=== PATIENT | male | born 1965 | race Caucasian/White ===

== ENCOUNTER 2017-02-15 13:36 | Emergency (ER) | payer BC ==
[2017-02-15 14:24] LABS: BASO % 0.2 % (0-6); EOS % 1.9 % (0-6); GRAN % 79.3 % (47-80); HEMOGLOBIN 14.9 gm/dl (14.0-18.0); LYMPH % 10.1 % (16-45); MEAN CORPUSCULAR HEMOGLOBIN 29.4 pg (27-33); MEAN CORPUSCULAR HGB CONC 33.9 g/dl (32-36); MONO % 8.5 % (0-9); PLATELET COUNT 190 K/uL (130-400); RED BLOOD COUNT 5.06 M/uL (4.40-5.70); RED CELL DISTRIBUTION WIDTH 13.6 % (11.5-14.5); WHITE BLOOD COUNT W/O DIFF 8.9 K/uL (4.2-12.2)
[2017-02-15 14:35] LABS: ANION GAP 9.6 (7-16); BLOOD UREA NITROGEN 14 mg/dL (9-20); CARBON DIOXIDE 24.4 mmol/L (22-30); CREATININE 0.6 mg/dL (0.66-1.25); EST GLOMERULAR FILTRATION RATE > 60 ml/min; GLUCOSE,RANDOM 173 mg/dL (70-110)
[2017-02-15] MEDS ORDERED: CLINDAMYCIN 600MG/50ML PREMIX 600 MG in DEXTROSE 1 BAG IV ONE (15:08)
[2017-02-15 15:19] LABS: URINE APPEARANCE CLEAR; URINE BILIRUBIN NEGATIVE (NEGATIVE); URINE BLOOD NEGATIVE (NEGATIVE); URINE COLOR YELLOW; URINE KETONE TRACE (NEGATIVE); URINE LEUKOCYTE ESTERASE NEGATIVE (NEGATIVE); URINE NITRITE NEGATIVE (NEGATIVE); URINE PROTEIN NEGATIVE (NEGATIVE); URINE UROBILINOGEN 0.2 E.U./dL (0.20 - 1.00)
[2017-02-15 15:20] LABS: URINE GLUCOSE (UA) >=1000 mg/dL (NEGATIVE)
--- NOTE | 2017-02-15 15:37 | Emergency Department Record ---
History of Present Illness - General Chief complaint: Bite Insect/other Stated complaint: INSECT BITE ON RT LEG Time Seen by Provider: 02/15/17 14:00 Source: Patient Mode of Arrival: Ambulatory Limitations: No limitations - History of Present Illness Initial comments: pt has 2 sores on thigh. he is unsure what caused them but thought they might be spider bites. they have grown progressively worse and now are starting to drain. MD complaint: Abscess/boil Onset/Timin -: Days(s) Patient Tetanus UTD (within 5 yrs): Yes Location: Generalized Severity: Moderate Severity scale (1-10): 8 Quality: Aching Consistency: Constant, Intermittent Improves with: Rest Worsens with: Palpation, Movement - Related Data Home Medications Medication Instructions Recorded Confirmed Last Taken Insulin NPL/Insulin Lispro 25 units SQ BID 07/03/15 02/15/17 1 Day Ago [Humalog Mix 75/25 Vial] Metformin HCl 1,000 mg PO BID 07/03/15 02/15/17 1 Day Ago Amlodipine Besylate [Norvasc] 10 mg PO DAILY 02/15/17 02/15/17 1 Day Ago Betamethasone Valerate 15 gm TP DAILY 02/15/17 02/15/17 1 Day Ago Mupirocin [Bactroban] 1 apply TP TID 02/15/17 02/15/17 1 Day Ago Previous Rx's Medication Instructions Recorded Clindamycin HCl [Cleocin HCl] 300 mg PO QID #40 capsule 02/15/17 Hydrocodone/Acetaminophen [[place] 1 tab PO Q6H PRN #14 tab 02/15/17 7.5mg/325mg] Allergies Allergy/AdvReac Type Severity Reaction Status Date / Time ciprofloxacin [From Cipro] Allergy HIVES Verified 02/15/17 13:49 ciprofloxacin HCl Allergy HIVES Verified 02/15/17 13:49 [From Cipro] Travel Screening - Travel/Exposure Within Last 30 Days Have you traveled within the last 30 days?: No - Travel/Exposure Within Last Year Have you traveled outside the [place] in the last year?: No - Additonal Travel Details Have you been exposed to anyone with a communicable illness?: No - Travel Symptoms Symptom Screening: None Review of Systems Reviewed: No additional complaints except as noted below Constitutional: Reports: As per HPI. Denies: Chills, Fever, Malaise, Night sweats, Weakness, Weight change Eyes: Reports: As per HPI. Denies: Eye discharge, Eye pain, Photophobia, Vision change ENT: Reports: As per HPI. Denies: Congestion, Dental pain, Ear pain, Epistaxis , Hearing loss, Throat pain Respiratory: Reports: As per HPI. Denies: Cough, Dyspnea, Hemoptysis, Stridor, Wheezes Cardiovascular: Reports: As per HPI. Denies: Arrhythmia, Chest pain, Dyspnea on exertion, Edema, Murmurs, Orthopnea, Palpitations, Paroxysmal nocturnal dyspnea, Rheumatic Fever, Syncope Endocrine: Reports: As per HPI. Denies: Fatigue, Heat or cold intolerance, Polydipsia, Polyuria Gastrointestinal: Reports: As per HPI. Denies: Abdominal pain, Constipation, Diarrhea, Hematemesis, Hematochezia, Melena, Nausea, Vomiting Genitourinary: Reports: As per HPI. Denies: Dysuria, Frequency, Hematuria, Incontinence, Retention, Testicular pain, Testicular mass, Urgency Musculoskeletal: Reports: As per HPI. Denies: Arthralgia, Back pain, Gout, Joint swelling, Myalgia, Neck pain Skin: Reports: As per HPI. Denies: Bruising, Change in color, Change in hair/ nails, Lesions, Pruritus, Rash Neurological: Reports: As per HPI. Denies: Abnormal gait, Confusion, Headache, Numbness, Paresthesias, Seizure, Tingling, Tremors, Vertigo, Weakness Psychiatric: Reports: As per HPI. Denies: Anxiety, Auditory hallucinations, Depression, Homicidal thoughts, Suicidal thoughts, Visual hallucinations Hematological/Lymphatic: Reports: As per HPI. Denies: Anemia, Blood Clots, Easy bleeding, Easy bruising, Swollen glands Past Medical History - SOCIAL HISTORY Smoking Status: Never smoker Alcohol Use: Occassional Drug Use: None - RESPIRATORY Hx Respiratory Disorders: No - CARDIOVASCULAR Hx Cardio Disorders: No - NEURO Hx Neuro Disorders: No - GI Hx GI Disorders: No Hx Abdominal Pain: Yes - Hx Genitourinary Disorders: No - ENDOCRINE Hx Endocrine Disorders: Yes Hx Diabetes: Yes - MUSCULOSKELETAL Hx Musculoskeletal Disorders: No - PSYCH Hx Psych Problems: No - HEMATOLOGY/ONCOLOGY Hx Hematology/Oncology Disorders: No Family Medical History Any Significant Family History?: Yes Hx Cancer: Grandparents Hx Diabetes: Grandparents Physical Exam - General General Appearance: Alert, Oriented x3, Cooperative, Mild distress - Head Head exam: Normal inspection - Eye Eye exam: Normal appearance, PERRL Pupils: Normal accommodation - ENT ENT exam: Normal exam, Mucous membranes moist, Normal external ear exam, Normal orophraynx Ear exam: Normal external inspection. negative: External canal tenderness Nasal Exam: Normal inspection. negative: Discharge, Sinus tenderness Mouth exam: Normal external inspection, Tongue normal Teeth exam: Normal inspection. negative: Dental caries Throat exam: Normal inspection. negative: Tonsillar erythema, Tonsillar exudate - Neck Neck exam: Normal inspection, Full ROM. negative: Tenderness - Respiratory Respiratory exam: Normal lung sounds bilaterally. negative: Respiratory distress - Cardiovascular Cardiovascular Exam: Regular rate, Normal rhythm, Normal heart sounds - GI/Abdominal GI/Abdominal exam: Soft, Normal bowel sounds. negative: Tenderness - Rectal Rectal exam: Deferred - exam: Deferred - Extremities Extremities exam: Normal inspection, Full ROM, Normal capillary refill. negative: Tenderness Image of Full Body: 1 - cellulitis w 2 areas of black centers, plate size. minimally fluctuent, tender - Back Back exam: Reports: Normal inspection, Full ROM. Denies: Muscle spasm, Rash noted, Tenderness - Neurological Neurological exam: Alert, CN II-XII intact, Normal gait, Oriented X3 - Psychiatric Psychiatric exam: Normal affect, Normal mood - Skin Skin exam: Dry, Intact, Normal color, Warm Course Vital Signs 02/15/17 13:42 Temperature 98.2 F Pulse Rate 85 Respiratory 18 Rate Blood Pressure 116/72 Pulse Ox 97 - Reevaluation(s) Reevaluation #1: 02/15/17 16:17 area was sterilely prepped and draped, anesthetized w lido, both spots were incised w 11 blade. minimal drainage., culture obtained Procedures - Incision and Drainage Site: r thigh Blade Size: 11 Medical Decision Making - Lab Data Result diagrams: 02/15/17 14:12 02/15/17 14:12 Lab Results 02/15/17 02/15/17 02/15/17 Range/Units 14:03 14:12 14:12 WBC 8.9 (4.2-12.2) K/uL RBC 5.06 (4.40-5.70) M/uL Hgb 14.9 (14.0-18.0) gm/dl Hct 44.0 (42.0-52.0) % MCV 87.0 (81-97) fl MCH 29.4 (27-33) pg MCHC 33.9 (32-36) g/dl RDW 13.6 (11.5-14.5) % Plt Count 190 (130-400) K/uL MPV 11.0 H (7.4-10.4) fl Gran % 79.3 (47-80) % Lymphocytes % 10.1 L (16-45) % Monocytes % 8.5 (0-9) % Eosinophils % 1.9 (0-6) % Basophils % 0.2 (0-6) % Sodium 138 (136-145) mmol/L Potassium 4.2 (3.5-5.1) mmol/L Chloride 104 (98-107) mmol/L Carbon Dioxide 24.4 (22-30) mmol/L Anion Gap 9.6 (7-16) BUN 14 (9-20) mg/dL Creatinine 0.6 L (0.66-1.25) mg/dL Estimated GFR > 60 ml/min Random Glucose 173 H (70-110) mg/dL Calcium 8.6 (8.5-10.1) mg/dL Urine Color Yellow Urine Appearance Clear Urine pH 5.0 (5.0-8.0) Ur Specific [place] 1.020 (1.002-1.030) Urine Protein Negative (NEGATIVE) Urine Glucose (UA) >=1000 mg/dl H (NEGATIVE) Urine Ketones Trace H (NEGATIVE) Urine Blood Negative (NEGATIVE) Urine Nitrite Negative (NEGATIVE) Urine Bilirubin Negative (NEGATIVE) Urine Urobilinogen 0.2 (0.20 - 1.00) E.U./dL Ur Leukocyte Esterase Negative (NEGATIVE) Disposition Disposition: Discharge Clinical Impression: Abscess or cellulitis of thigh Disposition: Home, Self-Care Condition: (1) Good Instructions: Cellulitis (ED), Abscess (ED) Additional Instructions: return for recheck in am without fail. return sooner if worse. elevate Prescriptions: Clindamycin HCl [Cleocin HCl] 300 mg PO QID #40 capsule Hydrocodone/Acetaminophen [[place] 7.5mg/325mg] 1 tab PO Q6H PRN #14 tab PRN Reason: Pain - General Forms: Patient Portal Access
[2017-02-15] MEDS ORDERED: HYDROCODONE/APAP 7.5/325MG TABLET PO ONE (16:21)
== END 2017-02-15 16:35 | disposition home or self-care (01) ==
LOC: ER 13:36
DX: L02.415 Cutaneous abscess of right lower limb (principal)
CPT/HCPCS: 10060; 80048; 81003; 85025; 96374; 99284

== ENCOUNTER 2017-02-16 09:33 | Emergency (ER) | payer BC ==
[2017-02-16] MEDS ORDERED: CLINDAMYCIN 600MG/50ML PREMIX 600 MG in DEXTROSE 1 BAG IV ONE (09:44)
--- NOTE | 2017-02-16 09:51 | Emergency Department Record ---
History of Present Illness - General Chief Complaint: Wound, check Stated Complaint: WOUND RECHECK Time Seen by Provider: 02/16/17 09:37 Source: Patient Mode of arrival: Ambulatory Limitations: No limitations - History of Present Illness Initial Comments: 51 yo male returns to ED for evaluation of previously drained abscess lesions x 2 to the right medial thigh. Patient reports that the surrounding erythema has improved from yesterday, reports low-grade fever last night. Patient reports the lesions have been present for the past 5 days, started as small pimples to the thigh that grew over several days. Patient does report a history of IDDM. MD Complaint: Wound re-check Onset/Timin -: Days(s) Initial Visit For: Abscess, Cellulitis Returns Today for: Wound recheck Symptoms Since Prior Visit: Fever Associated Symptoms: None Treatments Prior to Arrival: Dressings, Given antibiotics on initial visit, Other - Related Data Home Medications Medication Instructions Recorded Confirmed Last Taken Insulin NPL/Insulin Lispro 25 units SQ BID 07/03/15 02/16/17 02/16/17 [Humalog Mix 75/25 Vial] Metformin HCl 1,000 mg PO BID 07/03/15 02/16/17 02/16/17 Amlodipine Besylate [Norvasc] 10 mg PO DAILY 02/15/17 02/16/17 02/16/17 Betamethasone Valerate 15 gm TP DAILY 02/15/17 02/16/17 02/16/17 Mupirocin [Bactroban] 1 apply TP TID 02/15/17 02/16/17 02/16/17 Previous Rx's Medication Instructions Recorded Clindamycin HCl [Cleocin HCl] 300 mg PO QID #40 capsule 02/15/17 Hydrocodone/Acetaminophen [[place] 1 tab PO Q6H PRN #14 tab 02/15/17 7.5mg/325mg] Allergies Allergy/AdvReac Type Severity Reaction Status Date / Time ciprofloxacin [From Cipro] Allergy HIVES Verified 02/15/17 13:49 ciprofloxacin HCl Allergy HIVES Verified 02/15/17 13:49 [From Cipro] Review of Systems Constitutional: Reports: Fever. Denies: Chills, Malaise, Night sweats Eyes: Denies: Eye discharge, Eye pain ENT: Denies: Congestion, Dental pain Respiratory: Denies: Cough, Stridor, Wheezes Cardiovascular: Denies: Chest pain, Dyspnea on exertion Endocrine: Denies: Fatigue, Heat or cold intolerance Gastrointestinal: Denies: Abdominal pain, Nausea, Vomiting Genitourinary: Denies: Incontinence, Retention Musculoskeletal: Denies: Arthralgia, Back pain, Gout, Joint swelling Skin: Reports: Lesions. Denies: Bruising, Change in color, Change in hair/nails Neurological: Denies: Abnormal gait, Confusion, Headache, Tingling Psychiatric: Denies: Anxiety Hematological/Lymphatic: Denies: Anemia, Blood Clots Past Medical History - SOCIAL HISTORY Smoking Status: Never smoker Drug Use: None - RESPIRATORY Hx Respiratory Disorders: No - CARDIOVASCULAR Hx Cardio Disorders: No - NEURO Hx Neuro Disorders: No - GI Hx GI Disorders: No Hx Abdominal Pain: Yes - Hx Genitourinary Disorders: No - ENDOCRINE Hx Endocrine Disorders: Yes Hx Diabetes: Yes - MUSCULOSKELETAL Hx Musculoskeletal Disorders: No - PSYCH Hx Psych Problems: No - HEMATOLOGY/ONCOLOGY Hx Hematology/Oncology Disorders: No Family Medical History Hx Cancer: Grandparents Hx Diabetes: Grandparents Physical Exam - General General Appearance: Alert, Oriented x3, Cooperative, No acute distress Limitations: No limitations - Head Head exam: Atraumatic, Normocephalic, Normal inspection Head exam detail: negative: Abrasion, Contusion, Caldwell's sign, General tenderness, Hematoma, Laceration - Eye Eye exam: Normal appearance. negative: Conjunctival injection, Periorbital swelling, Periorbital tenderness, Scleral icterus - ENT Ear exam: negative: Auricular hematoma, Auricular trauma Nasal Exam: negative: Active bleeding, Discharge, Dried blood Mouth exam: negative: Drooling, Laceration, Muffled voice, Tongue elevation - Neck Neck exam: Normal inspection. negative: Meningismus, Tenderness - Respiratory Respiratory exam: Normal lung sounds bilaterally. negative: Respiratory distress, Rhonchi, Stridor, Wheezes - Cardiovascular Cardiovascular Exam: Regular rate, Normal rhythm, Normal heart sounds - GI/Abdominal GI/Abdominal exam: Soft. negative: Rebound, Rigid, Tenderness - Rectal Rectal exam: Deferred - exam: Deferred - Extremities Extremities exam: Tenderness, Other (Erythema surrounding two perviously incised lesions present along the medial right thigh, erythema has improved from previously marked area, induration is still present surrounding the lesions.). negative: Pedal edema - Back Back exam: Denies: CVA tenderness (R), CVA tenderness (L) - Neurological Neurological exam: Alert, Normal gait, Oriented X3 - Psychiatric Psychiatric exam: Normal affect, Normal mood - Skin Skin exam: Erythema, Warm Type of lesion: Abscess Distribution of rash: RLE Description of rash: Erythematous, Swelling, Tenderness Course - Reevaluation(s) Reevaluation #1: 02/16/17 09:50 Labs reviewed from 02/15/17 and are grossly unremarkable for an acute process. Will perform CT imaging to better visualize the depth of these lesions, administer Clindamycin IV as well. Reevaluation #2: 02/16/17 10:54 CT Lower Extremity: Cellulitis without evidence for abscess. Patient's Clindamycin has completed infusing, all results were discussed with both the patient and his significant other, and appears stable for discharge at this time. Patient was instructed that he does not need to return for any further rechecks of his skin infection unless his symptoms worsen or if he has any concerns. Disposition Disposition: Discharge Clinical Impression: Cellulitis of lower extremity Qualifiers: Laterality: right Qualified Code(s): L03.115 - Cellulitis of right lower limb Disposition: Home, Self-Care Condition: (2) Stable Instructions: Cellulitis (ED) Additional Instructions: Return to ED if your symptoms worsen or if you have any concerns. Continue Clindamycin as directed. Follow-up with your family doctor in 2-3 days as directed. Forms: Patient Portal Access Time of Disposition: 10:57
--- NOTE | 2017-02-19 15:02 | CT SCAN REPORT ---
DATE: 02/16/2017. EXAM: CT OF THE RIGHT THIGH REGION. HISTORY: Ulcer. TECHNIQUE: Axial CT images of the right thigh were obtained with coronal and sagittal reconstructions. Imaging was performed following intravenous administration of 100 mL of Omnipaque 300 contrast. COMPARISON: None. FINDINGS: There is subcutaneous edema and inflammatory changes in the medial right thigh region, minimally abutting the medial thigh musculature. However, no discrete or defined abscess. No soft tissue gas. No underlying osseus abnormality or sinus tract formation. The visualized joint spaces are preserved. IMPRESSION: FINDINGS LIKELY CELLULAR EQUIPMENT REPAIRER OF MEDIAL RIGHT THIGH CELLULITIS. NO DISCRETE ABSCESS. NO ACUTE OSSEOUS ABNORMALITY. JOB NUMBER: [id number] MTDD
== END 2017-02-16 11:15 | disposition home or self-care (01) ==
LOC: ER 09:33
DX: L02.415 Cutaneous abscess of right lower limb (principal); E11.9 Type 2 diabetes mellitus without complications; Z79.4 Long term (current) use of insulin
CPT/HCPCS: 99283